=== PATIENT | male | born 1985 | race Caucasian/White ===

== ENCOUNTER 2021-12-28 12:50 | Emergency (ER) | payer SELFPAY ==
[2021-12-28] MEDS ORDERED: CEFAZOLIN 1 GM VIAL ONE (14:28)
[2021-12-28] MEDS ORDERED: Bacitracin 1 PK ONE (14:30)
== END 2021-12-28 16:13 | disposition home or self-care (01) ==
LOC: ERS 12:50
DX: S62.631B Displaced fracture of distal phalanx of left index finger, initial encounter for open fracture (principal); F17.210 Nicotine dependence, cigarettes, uncomplicated; W26.8XXA Contact with other sharp object(s), not elsewhere classified, initial encounter
CPT/HCPCS: 11760; J0690

== ENCOUNTER 2023-07-16 11:14 | Emergency (ER) | payer SELFPAY | END 2023-07-16 13:35 | disposition home or self-care (01) | LOC: ERS 11:14 | DX: S42.001A Fracture of unspecified part of right clavicle, initial encounter for closed fracture (principal); F17.210 Nicotine dependence, cigarettes, uncomplicated; W01.0XXA Fall on same level from slipping, tripping and stumbling without subsequent striking against object, initial encounter ==